=== PATIENT | male | born 1945 ===

== ENCOUNTER → 2018-06-26 | Outpatient (CLI) | payer OTHER | LOC: ULTRA 12:49 | DX: S81.801D Unspecified open wound, right lower leg, subsequent encounter (principal); S81.802D Unspecified open wound, left lower leg, subsequent encounter; E08.8 Diabetes mellitus due to underlying condition with unspecified complications; I73.9 Peripheral vascular disease, unspecified; I89.0 Lymphedema, not elsewhere classified; R60.0 Localized edema; X58.XXXD Exposure to other specified factors, subsequent encounter ==